=== PATIENT | female | born 1990 | race Caucasian/White ===

== ENCOUNTER 2019-06-14 08:26 | Emergency (ER) | payer MEDICAID, OTHER ==
[~2019-06-14] VITALS: Ht 157.5 cm; Wt 103.2 kg
[2019-06-14 09:08] LABS: Basophils # (auto) 0 10 ^3/uL (0-0.2); Basophils % (auto) 0.4 % (0.0-2.0); Eosinophils # (auto) 0 10 ^3/uL (0-0.8); Eosinophils % (auto) 0.3 % (0.0-7.0); Hematocrit 40.6 % (36.0-46.0); Hemoglobin 13.4 g/dL (12.2-16.2); Lymphocytes # (auto) 1.9 10 ^3/uL (0.4-5.4); Lymphocytes % (auto) 23.5 % (10.0-50.0); Mean Corpuscular Hemoglobin 27.8 pg (28.0-32.0); Mean Corpuscular Hgb Conc. 33.1 g/dL (32.0-36.0); Mean Corpuscular Volume 84.1 fL (80.0-100.0); Monocytes # (auto) 0.4 10 ^3/uL (0-1.3); Monocytes % (auto) 5.2 % (0.0-12.0); Neutrophils # (auto) 5.6 10 ^3/uL (1.6-8.6); Neutrophils % (auto) 70.6 % (37.0-80.0); Nucleated Red Blood Cells % 0.1 %; Platelet Count (auto) 144 10^3/uL (140-450); Red Blood Cells 4.83 10^6/uL (4.0-5.20); Red Cell Distribution Width 14.2 % (11.8-14.3); White Blood Cell 7.9 10^3/uL (4.4-10.8)
[2019-06-14 09:24] LABS: Albumin 3.3 g/dL (3.4-5.0); Calcium 8.6 mg/dL (8.5-10.1); Potassium 3.7 mmol/L (3.5-5.1)
[2019-06-14 09:30] LABS: BUN/Creatinine Ratio 7.6; Bilirubin, Total 0.4 mg/dL (0.2-1.0); Total Protein 7.3 g/dL (6.4-8.2)
[2019-06-14 09:59] LABS: Urine Bacteria FEW /hpf (None Seen); Urine Blood 2+ /uL (Negative); Urine Mucus FEW (None Seen); Urine Specific Gravity 1.017 (1.001-1.035); Urine WBC 2 /hpf (0 - 5)
[2019-06-14 10:40] VITALS: BP 103/67
== END 2019-06-14 12:07 | disposition home or self-care (01) ==
LOC: ER 08:26
DX: O20.9 Hemorrhage in early pregnancy, unspecified (principal); Z3A.01 Less than 8 weeks gestation of pregnancy
CPT/HCPCS: 36415; 76801; 80053; 81001; 84702; 85025

== ENCOUNTER 2019-08-05 17:01 | Observation (INO) | payer MEDICAID ==
[~2019-08-05] VITALS: Ht 154.9 cm; Wt 104.3 kg
[2019-08-05] MEDS ORDERED: OXYTOCIN 10UNIT/ML 1ML VIAL ONE (19:13)
[2019-08-05] MEDS ORDERED: LACT. RINGERS/OXYTOCIN 20UNITS 1,000 ML IV ONE (19:15)
[2019-08-05] MEDS ORDERED: METHYLERGONOVINE MALEATE 0.2 MG/ML AMP IM ONE (19:15)
[2019-08-05 19:46] LABS: Basophils # (auto) 0 10 ^3/uL (0-0.2); Basophils % (auto) 0.2 % (0.0-2.0); Eosinophils # (auto) 0 10 ^3/uL (0-0.8); Eosinophils % (auto) 0.1 % (0.0-7.0); Hematocrit 37.3 % (36.0-46.0); Hemoglobin 12.5 g/dL (12.2-16.2); Lymphocytes # (auto) 1.3 10 ^3/uL (0.4-5.4); Mean Corpuscular Hemoglobin 28.2 pg (28.0-32.0); Mean Corpuscular Hgb Conc. 33.5 g/dL (32.0-36.0); Mean Corpuscular Volume 84.2 fL (80.0-100.0); Monocytes # (auto) 0.6 10 ^3/uL (0-1.3); Monocytes % (auto) 5.2 % (0.0-12.0); Neutrophils % (auto) 83.5 % (37.0-80.0); Platelet Count (auto) 138 10^3/uL (140-450); Red Blood Cells 4.43 10^6/uL (4.0-5.20); Red Cell Distribution Width 13.8 % (11.8-14.3)
[2019-08-05 19:54] LABS: INR 1.04 (0.9-1.15); Partial Thromboplastin Time 29.1 sec (23.64-32.05)
[2019-08-05] MEDS ORDERED: ONDANSETRON HCL 4 MG/2 ML VIAL IV PRN (23:45)
[2019-08-05] MEDS ORDERED: HYDROmorphone HCL 2 MG/ML VL IV PRN ×2 (23:45)
[2019-08-05] MEDS ORDERED: NALOXONE HCL 0.4 MG/ML VIAL IV PRN (23:45)
[2019-08-05] MEDS ORDERED: SUCCINYLCHOLINE CHLORIDE 20 MG/ML 10ML VIAL IV ONE (23:46)
[2019-08-05] MEDS ORDERED: PROPOFOL 10 MG/ML 20 ML IV ONE (23:47)
[2019-08-05] MEDS ORDERED: ROCURONIUM 10MG/ML 10ML VIAL IV ONE (23:47)
[2019-08-05] MEDS ORDERED: MIDAZOLAM HCL 1MG/1ML-2 ML VIAL ONE (23:47)
[2019-08-05] MEDS ORDERED: LIDOCAINE 1% (LOCAL ANESTH.) PF 5ml SDV ONE (23:47)
[2019-08-05] MEDS ORDERED: ETOMIDATE (2MG/ML) 20ML VIAL IV ONE (23:50)
[2019-08-05] MEDS ORDERED: METOCLOPRAMIDE HCL 5MG/ml INJ 2ml VIAL ONE (23:57)
[2019-08-06] VITALS (11 sets, daily range): BP systolic 105–120; BP diastolic 57–77
[2019-08-06] MEDS ORDERED: fentaNYL CITRATE 100 MCG/2 ML VL ONE (00:07)
[2019-08-06] MEDS ORDERED: ePHEDrine SULFATE 50 MG/ML AMP ONE (00:11)
[2019-08-06] MEDS ORDERED: STERILE WATER 10 ML ONE (00:11)
[2019-08-06] MEDS ORDERED: OXYTOCIN 10UNIT/ML 1ML VIAL ONE (00:20)
[2019-08-06] MEDS ORDERED: IBUPROFEN 600 MG TAB PO PRN (00:45)
--- NOTE | 2019-08-06 01:50 | NUR ---
received report from [place] from PACU on stable patient. pt able to transfer from [facility] to bed with RN x3 assistance. patients vitals are stable. pt is awake, alert and orientated with no pain.
--- NOTE | 2019-08-06 03:00 | NUR ---
cici care performed
--- NOTE | 2019-08-06 07:30 | NUR ---
Cici care and Almeida care performed, new cici pad and underpad placed. Pt tolerated well.
[2019-08-06 07:51] LABS: Basophils # (auto) 0 10 ^3/uL (0-0.2); Basophils % (auto) 0.1 % (0.0-2.0); Eosinophils # (auto) 0 10 ^3/uL (0-0.8); Eosinophils % (auto) 0.2 % (0.0-7.0); Hematocrit 27.7 % (36.0-46.0); Hemoglobin 9.4 g/dL (12.2-16.2); Lymphocytes % (auto) 14.2 % (10.0-50.0); Mean Corpuscular Hemoglobin 28.7 pg (28.0-32.0); Mean Corpuscular Volume 84.5 fL (80.0-100.0); Monocytes # (auto) 0.4 10 ^3/uL (0-1.3); Monocytes % (auto) 5.2 % (0.0-12.0); Neutrophils # (auto) 5.9 10 ^3/uL (1.6-8.6); Neutrophils % (auto) 80.3 % (37.0-80.0); Nucleated Red Blood Cells % 0.1 %; Platelet Count (auto) 111 10^3/uL (140-450); Red Blood Cells 3.27 10^6/uL (4.0-5.20); Red Cell Distribution Width 13.6 % (11.8-14.3); White Blood Cell 7.3 10^3/uL (4.4-10.8)
[2019-08-06 08:20] LABS: Potassium 3.6 mmol/L (3.5-5.1)
[2019-08-06 08:30] LABS: Albumin 2.5 g/dL (3.4-5.0); BUN/Creatinine Ratio 10.7; Bilirubin, Total 0.6 mg/dL (0.2-1.0); Calcium 8.1 mg/dL (8.5-10.1); Total Protein 5.3 g/dL (6.4-8.2)
--- NOTE | 2019-08-06 09:03 | NUR ---
Dr Boone called, vital signs, labs reviewed. orders received to D/C eulailo, start pt on Iron and regular diet may be started
--- NOTE | 2019-08-06 09:16 | NUR ---
COLUNGA CATHETER REMOVED, PT TOLERATED WELL. ICE WATER PROVIDED
--- NOTE | 2019-08-06 09:42 | NUR ---
STONE FINISHER CONSULTS WITH PATIENT VIA PHONE, SPOKE WITH SUDHEER DORMAN PT OK TO BE DISCHARGED TO HOME WITH CRISIS CENTER INFORMATION/HANDOUT.
--- NOTE | 2019-08-06 10:45 | NUR ---
Ambulation: Patient OOB with standby assistance by RN. Patient ambulated to bathroom with steady gait. Patient able to void 300ml without difficulty. [facility] teaching provided with returned demonstration by patient. Patient ambulated back to bed with steady gait and no distress noted.
--- NOTE | 2019-08-06 10:52 | NUR ---
Pt provided with maternal mental health community resources handout. Pt verbalizes understanding.
[2019-08-06] MEDS ORDERED: RHO (D) IMMUNE GLOBULIN 300 MCG INJ IM ONE (11:30)
--- NOTE | 2019-08-06 11:50 | NUR ---
Dr Boone [place] on patient, ok to be discharged to home, have Pt follow up with Dr Riddle
[2019-08-06] MEDS ORDERED: FERROUS SULFATE 325 MG TAB PO SCH (12:00)
--- NOTE | 2019-08-06 12:03 | NUR ---
RX Ferrous Sulfate called into to pharmacy of patients choice [facility] on [address], ferrous sulfate 325mg PO BID #[id number] with 3 refills.
--- NOTE | 2019-08-06 12:35 | NUR ---
Dr. Boone informed of elevated HR of 124, BP stable, afebrile, and scant bleeding noted. Orders received to discharge pt if stable, once HR is <110 bpm.
--- NOTE | 2019-08-06 12:52 | NUR ---
Dr. Boone at nurses station, informed that HR is 97. Orders received to d/c pt home.
--- NOTE | 2019-08-06 12:57 | NUR ---
IV removal IV DC'd with sterile technique, catheter fully intact. Pressure dressing applied to site. Patient tolerated procedure well.
--- NOTE | 2019-08-06 13:00 | NUR ---
Discharge: Discharge instructions given as ordered. Pt encouraged to follow up with SHOT EXAMINER as instructed. All questions and concerns addressed. Patient verbalized understanding. All required/requested vaccines given and copies of vaccinations given to patient. Patient encouraged to prepare to depart unit.
--- NOTE | 2019-08-06 13:07 | NUR ---
Discharge: Patient ambulates off unit, No distress noted at time of departure, no adverse changes in status since initial assessment.
== END 2019-08-06 13:07 | disposition home or self-care (01) | DRG 566 ==
LOC: ER 17:01 → LDRP 17:39
PROVIDERS: ADMIT Specialist; ATTEND Specialist
DX: O46.92 Antepartum hemorrhage, unspecified, second trimester (principal); O03.9 Complete or unspecified spontaneous abortion without complication; O99.342 Other mental disorders complicating pregnancy, second trimester; O99.012 Anemia complicating pregnancy, second trimester; Z3A.19 19 weeks gestation of pregnancy
CPT/HCPCS: 36415; 59841; 76815; 80053; 84702; 85025; 85610; 85730; 86850; 86900; 86901; 90384; 94760; 96365; 96366; 96372; 99284; G0378; J0330; J2210; J2250; J2590; J2704; J2765; J3010; 96360

== ENCOUNTER 2020-09-26 13:14 | Inpatient (IN) | payer MEDICAID ==
[~2020-09-26] VITALS: Ht 157.5 cm; Wt 114.0 kg
[2020-09-26] MEDS ORDERED: SODIUM CHLORIDE 0.9% 1,000 ML IV ONE (17:00)
[2020-09-26] MEDS ORDERED: KETOROLAC TROMETH 30 MG/ML 1ML VIAL IV ONE (17:00)
[2020-09-26 17:11] LABS: Basophils # (auto) 0 10 ^3/uL (0-0.2); Basophils % (auto) 0.6 % (0.0-2.0); Eosinophils # (auto) 0 10 ^3/uL (0-0.8); Eosinophils % (auto) 0.3 % (0.0-7.0); Hematocrit 40.7 % (36.0-46.0); Hemoglobin 13.6 g/dL (12.2-16.2); Lymphocytes # (auto) 2.2 10 ^3/uL (0.4-5.4); Lymphocytes % (auto) 28.7 % (10.0-50.0); Mean Corpuscular Hemoglobin 27.6 pg (28.0-32.0); Mean Corpuscular Hgb Conc. 33.3 g/dL (32.0-36.0); Mean Corpuscular Volume 82.6 fL (80.0-100.0); Monocytes # (auto) 0.6 10 ^3/uL (0-1.3); Monocytes % (auto) 7.3 % (0.0-12.0); Neutrophils # (auto) 4.9 10 ^3/uL (1.6-8.6); Neutrophils % (auto) 63.1 % (37.0-80.0); Red Blood Cells 4.93 10^6/uL (4.0-5.20); Red Cell Distribution Width 13.7 % (11.8-14.3); White Blood Cell 7.8 10^3/uL (4.4-10.8)
[2020-09-26 17:32] LABS: Albumin 3.7 g/dL (3.4-5.0); BUN/Creatinine Ratio 8.8; Calcium 8.9 mg/dL (8.5-10.1); Potassium 3.7 mmol/L (3.5-5.1)
[2020-09-26 17:34] LABS: Bilirubin, Total 3.1 mg/dL (0.2-1.0); Total Protein 7.8 g/dL (6.4-8.2)
[2020-09-26] MEDS ORDERED: cefTRIAXone 1GM/50ML D5W 50 ML IV ONE (17:45)
[2020-09-26] MEDS ORDERED: ACETAMINOPHEN 325 MG TAB PO PRN (18:00)
[2020-09-26] MEDS ORDERED: NITROGLYCERIN 0.4 MG SL TAB SL PRN (18:00)
[2020-09-26] MEDS ORDERED: ONDANSETRON HCL 4 MG/2 ML VIAL IV PRN (18:00)
[2020-09-26] MEDS ORDERED: MORPHINE SULFATE INJECTION 2 MG/ML SYRG IV PRN (18:00)
[2020-09-26] MEDS: D5W/SOD CHL 0.45% 1,000 ML IV SCH (18:23)
[2020-09-26] MEDS ORDERED: PANTOPRAZOLE 40 MG/10 ML VIAL INJ IV ONE (18:30)
[2020-09-27] MEDS ORDERED: KETOROLAC TROMETH 30 MG/ML 1ML VIAL IV ONE (03:00)
[2020-09-27] MEDS ORDERED: IBUP600T27 PO (03:42)
[2020-09-27] MEDS ORDERED: ACET-1156 PO (03:42)
[2020-09-27 05:00] VITALS: BP 111/76
[2020-09-27] MEDS: D5W/SOD CHL 0.45% 1,000 ML IV SCH ×3 (06:28→18:00)
[2020-09-27 07:01] LABS: Basophils # (auto) 0 10 ^3/uL (0-0.2); Basophils % (auto) 0.3 % (0.0-2.0); Eosinophils # (auto) 0 10 ^3/uL (0-0.8); Eosinophils % (auto) 0.3 % (0.0-7.0); Hematocrit 37.1 % (36.0-46.0); Hemoglobin 12.4 g/dL (12.2-16.2); Lymphocytes # (auto) 1.7 10 ^3/uL (0.4-5.4); Lymphocytes % (auto) 29.1 % (10.0-50.0); Mean Corpuscular Hemoglobin 27.8 pg (28.0-32.0); Mean Corpuscular Hgb Conc. 33.6 g/dL (32.0-36.0); Mean Corpuscular Volume 82.9 fL (80.0-100.0); Monocytes # (auto) 0.4 10 ^3/uL (0-1.3); Monocytes % (auto) 7.3 % (0.0-12.0); Neutrophils # (auto) 3.6 10 ^3/uL (1.6-8.6); Nucleated Red Blood Cells % 0.1 %; Red Blood Cells 4.47 10^6/uL (4.0-5.20); Red Cell Distribution Width 13.8 % (11.8-14.3); White Blood Cell 5.7 10^3/uL (4.4-10.8)
[2020-09-27 07:03] LABS: Albumin 2.9 g/dL (3.4-5.0); Calcium 8.3 mg/dL (8.5-10.1); Potassium 3.6 mmol/L (3.5-5.1)
[2020-09-27 07:06] LABS: BUN/Creatinine Ratio 7.6; Total Protein 6.6 g/dL (6.4-8.2)
[2020-09-27 09:00] VITALS: BP 119/74
[2020-09-27] MEDS: PANTOPRAZOLE 40 MG/10 ML VIAL INJ IV SCH (09:21)
[2020-09-27 09:42] LABS: INR 1.07 (0.9-1.15); Partial Thromboplastin Time 28.4 sec (23.6-33.0)
[2020-09-27 13:00] VITALS: BP 131/75
[2020-09-27] MEDS: ENOXAPARIN SOD 40 MG/0.4 ML SYRINGE SC SCH (13:45)
[2020-09-27 16:22] VITALS: BP 115/68
[2020-09-27] MEDS: MORPHINE SULFATE INJECTION 2 MG/ML SYRG IV PRN (20:48)
[2020-09-27 22:00] VITALS: BP 120/72
[2020-09-28] MEDS: D5W/SOD CHL 0.45% 1,000 ML IV SCH (01:18)
[2020-09-28 05:00] VITALS: BP 111/68
[2020-09-28 08:04] LABS: Albumin 2.9 g/dL (3.4-5.0); Calcium 8.2 mg/dL (8.5-10.1); Potassium 4.2 mmol/L (3.5-5.1)
[2020-09-28 08:06] LABS: BUN/Creatinine Ratio 6.2; Bilirubin, Total 1.8 mg/dL (0.2-1.0); Total Protein 6.7 g/dL (6.4-8.2)
[2020-09-28] MEDS ORDERED: ceFAZolin 1GM/50ML 100 ML IV ONE (09:17)
[2020-09-28 09:40] VITALS: BP 126/63
[2020-09-28] MEDS ORDERED: POVIDONE IODINE 10 % TOPICAL OINT 30GM TOP ONE (09:40)
[2020-09-28] MEDS ORDERED: LIDOCAINE W/ EPINEPHRINE 1% 20ML VIAL ONE (09:41)
[2020-09-28] MEDS: PANTOPRAZOLE 40 MG/10 ML VIAL INJ IV SCH (10:00)
[2020-09-28] MEDS: ENOXAPARIN SOD 40 MG/0.4 ML SYRINGE SC SCH (10:00)
[2020-09-28] MEDS ORDERED: SUCCINYLCHOLINE CHLORIDE 20 MG/ML 10ML VIAL IV ONE (10:13)
[2020-09-28] MEDS ORDERED: fentaNYL CITRATE 100 MCG/2 ML VL ONE (10:16)
[2020-09-28] MEDS ORDERED: MIDAZOLAM HCL 2MG/2ML 2ml VIAL (1mg/ml) ONE (10:16)
[2020-09-28] MEDS ORDERED: ROCURONIUM 10MG/ML 10ML VIAL IV ONE (10:18)
[2020-09-28] MEDS ORDERED: HYDROmorphone HCL 2 MG/ML VL IV PRN ×3 (10:30→11:15)
[2020-09-28] MEDS ORDERED: ONDANSETRON HCL 4 MG/2 ML VIAL IV PRN ×2 (10:30→11:15)
[2020-09-28] MEDS ORDERED: METOCLOPRAMIDE HCL 5MG/ml INJ 2ml VIAL ONE (10:31)
[2020-09-28] MEDS ORDERED: ONDANSETRON HCL 4 MG/2 ML VIAL ONE (10:31)
[2020-09-28] MEDS ORDERED: DexAMETHasone SOD PHOS 10MG/1ML VIAL INJ ONE (10:31)
[2020-09-28] MEDS ORDERED: BUPIVACAINE 0.25% INJ 50ML VIAL ONE (10:39)
[2020-09-28] MEDS ORDERED: NEOSTIGMINE 1 MG/ML INJ (10mg/10ML VIAL) ONE (10:55)
[2020-09-28] MEDS ORDERED: GLYCOPYRROLATE 0.2 MG/ML 1ML VIAL ONE (10:55)
[2020-09-28] MEDS ORDERED: HYDROmorphone HCL 2 MG/ML VL ONE (11:34)
[2020-09-28] MEDS: D5W/SOD CHL 0.45%/KCL 20MEQ 1,000 ML IV SCH ×2 (12:29→20:51)
[2020-09-28 13:00] VITALS: BP 124/68
[2020-09-28] MEDS: ceFAZolin 1GM/50ML 50 ML IV SCH ×2 (13:56→21:22)
[2020-09-28 16:53] VITALS: BP 122/86
[2020-09-28] MEDS: MORPHINE SULFATE INJECTION 2 MG/ML SYRG IV PRN (17:51)
[2020-09-28 22:00] VITALS: BP 107/50
[2020-09-29] MEDS: ceFAZolin 1GM/50ML 50 ML IV SCH ×3 (05:19→21:59)
[2020-09-29 05:30] VITALS: BP 103/59
[2020-09-29] MEDS: D5W/SOD CHL 0.45%/KCL 20MEQ 1,000 ML IV SCH ×2 (06:07→16:20)
[2020-09-29 06:50] LABS: Basophils # (auto) 0 10 ^3/uL (0-0.2); Basophils % (auto) 0.4 % (0.0-2.0); Eosinophils # (auto) 0 10 ^3/uL (0-0.8); Eosinophils % (auto) 0.1 % (0.0-7.0); Hematocrit 38.8 % (36.0-46.0); Hemoglobin 12.8 g/dL (12.2-16.2); Lymphocytes % (auto) 16.2 % (10.0-50.0); Mean Corpuscular Hemoglobin 27.7 pg (28.0-32.0); Mean Corpuscular Hgb Conc. 32.9 g/dL (32.0-36.0); Mean Corpuscular Volume 84.1 fL (80.0-100.0); Monocytes # (auto) 0.7 10 ^3/uL (0-1.3); Monocytes % (auto) 5.7 % (0.0-12.0); Neutrophils # (auto) 9.8 10 ^3/uL (1.6-8.6); Neutrophils % (auto) 77.6 % (37.0-80.0); Nucleated Red Blood Cells % 0.1 %; Red Blood Cells 4.62 10^6/uL (4.0-5.20); Red Cell Distribution Width 14.3 % (11.8-14.3); White Blood Cell 12.6 10^3/uL (4.4-10.8)
[2020-09-29] MEDS: ACETAMINOPHEN/CODEINE#3 (300/30mg) TAB PO PRN ×2 (07:02→12:07)
[2020-09-29 07:07] LABS: Albumin 3.1 g/dL (3.4-5.0); Calcium 8.8 mg/dL (8.5-10.1)
[2020-09-29 07:12] LABS: Bilirubin, Total 1.1 mg/dL (0.2-1.0); Total Protein 7.1 g/dL (6.4-8.2)
[2020-09-29] MEDS: ENOXAPARIN SOD 40 MG/0.4 ML SYRINGE SC SCH (08:50)
[2020-09-29] MEDS: PANTOPRAZOLE 40 MG/10 ML VIAL INJ IV SCH ×2 (08:53)
[2020-09-29 09:00] VITALS: BP 101/73
[2020-09-29 13:00] VITALS: BP 116/57
[2020-09-29] MEDS: MORPHINE SULFATE INJECTION 2 MG/ML SYRG IV PRN ×2 (16:20→20:46)
[2020-09-29 17:00] VITALS: BP 114/66
[2020-09-29 22:00] VITALS: BP 118/69
[2020-09-30] MEDS: D5W/SOD CHL 0.45%/KCL 20MEQ 1,000 ML IV SCH (03:21)
[2020-09-30 05:30] VITALS: BP 126/74
[2020-09-30] MEDS: ceFAZolin 1GM/50ML 50 ML IV SCH (05:57)
[2020-09-30] MEDS: MORPHINE SULFATE INJECTION 2 MG/ML SYRG IV PRN (06:37)
[2020-09-30 07:09] LABS: Potassium 4.1 mmol/L (3.5-5.1)
[2020-09-30 07:17] LABS: BUN/Creatinine Ratio 12.9; Bilirubin, Total 0.8 mg/dL (0.2-1.0); Calcium 8.5 mg/dL (8.5-10.1); Total Protein 6.7 g/dL (6.4-8.2)
[2020-09-30] MEDS: PANTOPRAZOLE 40 MG/10 ML VIAL INJ IV SCH ×2 (08:33)
[2020-09-30] MEDS: ENOXAPARIN SOD 40 MG/0.4 ML SYRINGE SC SCH (08:33)
[2020-09-30 09:00] VITALS: BP 138/81
[2020-09-30 12:18] VITALS: BP 138/81
== END 2020-09-30 13:45 | disposition home or self-care (01) | DRG 263 ==
LOC: ER 13:14 → TELE 18:00 → TELE-WESTW 09-27 00:27
PROVIDERS: ADMIT Internal Medicine; ATTEND Internal Medicine
PROC: 3E013GC Introduction of Other Therapeutic Substance into Subcutaneous Tissue, Percutaneous Approach (ICD-10-PCS; 2020-09-28)
PROC: 0FT44ZZ Resection of Gallbladder, Percutaneous Endoscopic Approach (ICD-10-PCS; principal; 2020-09-28 10:15)
DX: K80.42 Calculus of bile duct with acute cholecystitis without obstruction (principal); D72.829 Elevated white blood cell count, unspecified; E11.9 Type 2 diabetes mellitus without complications; E66.01 Morbid (severe) obesity due to excess calories; K21.9 Gastro-esophageal reflux disease without esophagitis; N20.0 Calculus of kidney; R74.8 Abnormal levels of other serum enzymes; Z68.42 Body mass index [BMI] 45.0-49.9, adult; Z20.822 Contact with and (suspected) exposure to COVID-19; R79.89 Other specified abnormal findings of blood chemistry; Z80.3 Family history of malignant neoplasm of breast; Z82.49 Family history of ischemic heart disease and other diseases of the circulatory system; Z83.3 Family history of diabetes mellitus; Z90.49 Acquired absence of other specified parts of digestive tract
CPT/HCPCS: 36415; 74176; 74181; 76705; 80053; 83605; 83690; 84702; 85025; 85610; 85730; 86850; 86900; 86901; 87426; 96365; C9113; G0378; J0330; J0690; J0696; J1100; J1885; J2250; J2405; J3490

== ENCOUNTER 2021-10-28 10:30 | Emergency (ER) | payer OTHER, MEDICAID ==
[~2021-10-28] VITALS: Ht 154.9 cm; Wt 110.4 kg
[2021-10-28] MEDS ORDERED: SODIUM CHLORIDE 0.9% 1,000 ML IV ONE ×2 (11:00→13:30)
[2021-10-28 11:41] LABS: Basophils # (auto) 0 10 ^3/uL (0-0.2); Eosinophils # (auto) 0 10 ^3/uL (0-0.8); Eosinophils % (auto) 0.4 % (0.0-7.0); Hemoglobin 13.1 g/dL (12.2-16.2); Monocytes # (auto) 0.6 10 ^3/uL (0-1.3); Neutrophils # (auto) 6.6 10 ^3/uL (1.6-8.6)
[2021-10-28 11:43] LABS: Basophils % (auto) 0.3 % (0.0-2.0); Hematocrit 39.5 % (36.0-46.0); Lymphocytes # (auto) 2.5 10 ^3/uL (0.4-5.4); Lymphocytes % (auto) 25.3 % (10.0-50.0); Mean Corpuscular Hemoglobin 27.1 pg (28.0-32.0); Mean Corpuscular Hgb Conc. 33.1 g/dL (32.0-36.0); Mean Corpuscular Volume 81.8 fL (80.0-100.0); Monocytes % (auto) 6.5 % (0.0-12.0); Neutrophils % (auto) 67.5 % (37.0-80.0); Nucleated Red Blood Cells % 0.1 %; Red Blood Cells 4.84 10^6/uL (4.0-5.20); Red Cell Distribution Width 13.9 % (11.8-14.3); White Blood Cell 9.8 10^3/uL (4.4-10.8)
[2021-10-28 11:45] LABS: Albumin 3.6 g/dL (3.4-5.0); Calcium 8.7 mg/dL (8.5-10.1); Potassium 4.1 mmol/L (3.5-5.1)
[2021-10-28 11:49] LABS: BUN/Creatinine Ratio 14.9; Bilirubin, Total 0.4 mg/dL (0.2-1.0); Total Protein 7.2 g/dL (6.4-8.2)
[2021-10-28 12:55] LABS: Urine Bacteria FEW /hpf (None Seen); Urine Blood 1+ /uL (Negative); Urine Mucus FEW (None Seen); Urine Specific Gravity 1.019 (1.001-1.035); Urine WBC 78 /hpf (0 - 5)
[2021-10-28] MEDS ORDERED: KETOROLAC TROMETH 30 MG/ML 1ML VIAL IV ONE (13:30)
[2021-10-28] MEDS ORDERED: FUROSEMIDE 20 MG/2 ML VIAL IV ONE (13:30)
[2021-10-28] MEDS ORDERED: TAMSULOSIN HYDROCHLORIDE 0.4 MG CAP PO ONE (13:30)
[2021-10-28] MEDS ORDERED: NITR-87 PO (13:32)
[2021-10-28] MEDS ORDERED: IBU600T PO (13:32)
[2021-10-28 20:26] VITALS: BP 104/82
== END 2021-10-28 20:29 | disposition home or self-care (01) ==
LOC: ER 10:30
DX: N20.0 Calculus of kidney (principal); N39.0 Urinary tract infection, site not specified
CPT/HCPCS: 36415; 74176; 80053; 81001; 85025; 96361; 96374; 96375; 99284; J1885; J1940; J7030

== ENCOUNTER 2022-09-29 19:03 | Emergency (ER) | payer MEDICAID, OTHER ==
[~2022-09-29] VITALS: Ht 157.5 cm; Wt 110.0 kg
[~2022-09-29 19:03] MED LIST: IBU600T PO; NITR-87 PO
[2022-09-29 20:32] LABS: Basophils # (auto) 0 10 ^3/uL (0-0.2); Basophils % (auto) 0.3 % (0.0-2.0); Eosinophils # (auto) 0 10 ^3/uL (0-0.8); Eosinophils % (auto) 0.2 % (0.0-7.0); Hematocrit 39.8 % (36.0-46.0); Hemoglobin 13.4 g/dL (12.2-16.2); Lymphocytes # (auto) 2.4 10 ^3/uL (0.4-5.4); Lymphocytes % (auto) 25.3 % (10.0-50.0); Mean Corpuscular Hemoglobin 27.5 pg (28.0-32.0); Mean Corpuscular Hgb Conc. 33.8 g/dL (32.0-36.0); Mean Corpuscular Volume 81.6 fL (80.0-100.0); Monocytes # (auto) 0.5 10 ^3/uL (0-1.3); Monocytes % (auto) 5.3 % (0.0-12.0); Neutrophils # (auto) 6.6 10 ^3/uL (1.6-8.6); Neutrophils % (auto) 68.9 % (37.0-80.0); Nucleated Red Blood Cells % 0.3 %; Red Blood Cells 4.87 10^6/uL (4.0-5.20); Red Cell Distribution Width 13.9 % (11.8-14.3); White Blood Cell 9.6 10^3/uL (4.4-10.8)
[2022-09-29] MEDS ORDERED: HYDROcodone-ACET 7.5/325MG TAB PO ONE (21:00)
[2022-09-29] MEDS ORDERED: ONDANSETRON ODT 4 MG TAB PO ONE (21:00)
[2022-09-29 21:13] LABS: Alanine Aminotransferase 22 U/L (7-40); Albumin 4.7 g/dL (3.2-4.8); Alkaline Phosphatase 107 U/L (46-116); Aspartate Aminotransferase 17 U/L (13-40); BUN/Creatinine Ratio 10.5 (10.0-20.0); Blood Urea Nitrogen 11 mg/dL (9-23); Calcium 9.9 mg/dL (8.5-10.1); Chloride 105 mmol/L (98-107); Glucose 123 mg/dL (74-106); Lipase 36 U/L (12-53); Sodium 138 mmol/L (136-145)
[2022-09-29 21:14] LABS: Bilirubin, Total 0.6 mg/dL (0.2-1.0); Total Protein 7.4 g/dL (5.7-8.2)
[2022-09-29 21:59] VITALS: TEMP 97.3
[2022-09-29 22:21] LABS: Urine Bacteria NONE SEEN /hpf (None Seen); Urine Blood 2+ /uL (Negative); Urine Clarity HAZY (Clear); Urine Color Yellow (Yellow); Urine Mucus FEW (None Seen); Urine Protein, UAD 1+ (Negative); Urine Specific Gravity 1.031 (1.001-1.035); Urine WBC 5 /hpf (0 - 5)
[2022-09-29] MEDS ORDERED: HYDR-4902 PO ×3 (22:33→23:37)
[2022-09-29] MEDS: cefTRIAXone SOD 1,000 MG VL IM ONE ×2 (23:23→23:35)
[2022-09-29 23:35] VITALS: BP 132/79; PULSE 81; RESP 18; O2SAT 98
== END 2022-09-29 23:35 | disposition home or self-care (01) ==
LOC: ER 19:03
DX: N20.0 Calculus of kidney (principal); R10.2 Pelvic and perineal pain; K21.9 Gastro-esophageal reflux disease without esophagitis; Z79.899 Other long term (current) drug therapy; Z79.1 Long term (current) use of non-steroidal anti-inflammatories (NSAID)
CPT/HCPCS: 36415; 74176; 80053; 81001; 83690; 84702; 85025; 99284; J0696; Q0162

== ENCOUNTER 2022-12-12 15:04 | Emergency (ER) | payer MEDICAID ==
[~2022-12-12] VITALS: Ht 157.5 cm; Wt 111.4 kg
[~2022-12-12 15:04] MED LIST changes: +CEPH500C PO; +HYDR-4902 PO; +PRED20TA2 PO
[2022-12-12 16:15] VITALS: BP 110/64; PULSE 112; RESP 18; TEMP 99.3; O2SAT 95
[2022-12-12] MEDS ORDERED: LIDO2SOL26 MT (16:23)
[2022-12-12] MEDS ORDERED: AZIT500T66 PO ×2 (16:23)
[2022-12-12] MEDS ORDERED: CEPH500C PO (16:32)
== END 2022-12-12 16:35 | disposition home or self-care (01) ==
LOC: ER 15:04
DX: J03.90 Acute tonsillitis, unspecified (principal); K13.79 Other lesions of oral mucosa; Z79.1 Long term (current) use of non-steroidal anti-inflammatories (NSAID); Z79.899 Other long term (current) drug therapy

== ENCOUNTER 2023-01-24 23:27 | Emergency (ER) | payer MEDICAID ==
[~2023-01-24] VITALS: Ht 154.9 cm; Wt 111.2 kg
[~2023-01-24 23:27] MED LIST changes: +LIDO2SOL26 MT
[2023-01-25 00:38] LABS: Urine Bacteria NONE SEEN /hpf (None Seen); Urine Blood Negative /uL (Negative); Urine Clarity HAZY (Clear); Urine Color Yellow (Yellow); Urine Mucus FEW (None Seen); Urine Protein, UAD Negative (Negative); Urine Specific Gravity 1.015 (1.001-1.035); Urine Urobilinogen Normal (Negative); Urine WBC 4 /hpf (0 - 5); Urine pH 5.5 (5.0-8.0)
[2023-01-25 00:52] LABS: Basophils # (auto) 0 10 ^3/uL (0-0.2); Basophils % (auto) 0.4 % (0.0-2.0); Eosinophils # (auto) 0 10 ^3/uL (0-0.8); Eosinophils % (auto) 0.4 % (0.0-7.0); Hematocrit 40.2 % (36.0-46.0); Hemoglobin 13.4 g/dL (12.2-16.2); Lymphocytes # (auto) 3.1 10 ^3/uL (0.4-5.4); Lymphocytes % (auto) 30.8 % (10.0-50.0); Mean Corpuscular Hemoglobin 27.4 pg (28.0-32.0); Mean Corpuscular Hgb Conc. 33.3 g/dL (32.0-36.0); Mean Corpuscular Volume 82.4 fL (80.0-100.0); Monocytes # (auto) 0.7 10 ^3/uL (0-1.3); Monocytes % (auto) 6.5 % (0.0-12.0); Neutrophils # (auto) 6.2 10 ^3/uL (1.6-8.6); Neutrophils % (auto) 61.9 % (37.0-80.0); Nucleated Red Blood Cells % 0.1 %; Red Blood Cells 4.88 10^6/uL (4.0-5.20); Red Cell Distribution Width 13.4 % (11.8-14.3)
[2023-01-25 01:22] LABS: Alanine Aminotransferase 18 U/L (7-40); Albumin 4.5 g/dL (3.2-4.8); Alkaline Phosphatase 98 U/L (46-116); Anion Gap 7 (5-15); Aspartate Aminotransferase 18 U/L (13-40); BUN/Creatinine Ratio 8.4 (10.0-20.0); Bilirubin, Total 0.7 mg/dL (0.2-1.0); Blood Urea Nitrogen 7 mg/dL (9-23); Calcium 9.3 mg/dL (8.5-10.1); Carbon Dioxide 26 mmol/L (20-30); Chloride 104 mmol/L (98-107); Glucose 119 mg/dL (74-106); Potassium 3.5 mmol/L (3.5-5.1); Sodium 137 mmol/L (136-145); Total Protein 7.3 g/dL (5.7-8.2)
[2023-01-25 01:48] LABS: Lipase 32 U/L (12-53)
[2023-01-25] MEDS ORDERED: ZOFR4T PO (02:07)
[2023-01-25] MEDS ORDERED: ONDANSETRON ODT 4 MG TAB PO ONE (02:15)
[2023-01-25 04:29] VITALS: BP 137/86; PULSE 81; RESP 16; TEMP 97.8; O2SAT 95
== END 2023-01-25 04:28 | disposition home or self-care (01) ==
LOC: ER 23:27
DX: R11.0 Nausea (principal); Z79.899 Other long term (current) drug therapy
CPT/HCPCS: 36415; 80053; 81001; 81025; 83690; 85025

== ENCOUNTER 2023-06-14 06:55 | Emergency (ER) | payer MEDICAID ==
[~2023-06-14] VITALS: Ht 157.5 cm; Wt 113.0 kg
[~2023-06-14 06:55] MED LIST changes: +ZOFR4T PO
[2023-06-14 08:00] VITALS: BP 133/84; PULSE 70; RESP 18; TEMP 98.1; O2SAT 98
[2023-06-14] MEDS ORDERED: IBUP1TAB5 PO (08:06)
[2023-06-14] MEDS ORDERED: PENI500T2 PO (08:06)
[2023-06-14] MEDS ORDERED: LIDO2SOL26 MT (08:06)
== END 2023-06-14 08:45 | disposition home or self-care (01) ==
LOC: ER 06:55
DX: J02.9 Acute pharyngitis, unspecified (principal)